=== PATIENT | male | born 1980 | race Caucasian/White ===

== ENCOUNTER 2022-03-23 14:35 | Emergency (ER) | payer BC ==
[2022-03-23 15:08] LABS: Bilirubin Negative (Negative); Blood, Urine Negative (Negative); Clarity Clear (Clear); Glucose, Urine (Dipstick) Negative (Negative); Ketone, Urine Negative (Negative); Leukocyte Negative (Negative); Nitrite Negative (Negative); Protein, Urine (Dipstick) Negative (Neg-Trace); Specific Gravity, Urine 1.015 (1.005-1.030); Urobilinogen 0.2 mg/dL (Less than 2)
[2022-03-23] MEDS ORDERED: Ketorolac Tromethamine 30 MG/ML VIAL ONE (15:17)
== END 2022-03-23 15:42 | disposition home or self-care (01) ==
LOC: NAV ERS 14:35
DX: S33.5XXA Sprain of ligaments of lumbar spine, initial encounter (principal); X50.9XXA Other and unspecified overexertion or strenuous movements or postures, initial encounter
CPT/HCPCS: 81003; 96372; 99283; J1885